=== PATIENT | male | born 1985 | race Caucasian/White ===

== ENCOUNTER → 2016-07-10 | Outpatient (CLI) | payer OTHER | END | disposition home or self-care (01) | LOC: C.MAMM 14:26 | PROVIDERS: ATTEND Internal Medicine Gastroenterology | DX: K90.0 Celiac disease (principal) ==

== ENCOUNTER → 2016-08-29 | Outpatient (CLI) | payer OTHER | END | disposition home or self-care (01) | LOC: C.LAB 14:03 | PROVIDERS: ATTEND Internal Medicine | DX: K90.0 Celiac disease (principal) ==

== ENCOUNTER 2017-08-24 11:13 | Emergency (ER) | payer OTHER ==
[~2017-08-24] VITALS: Ht 182.9 cm; Wt 86.6 kg
[2017-08-24 11:22] VITALS: TEMP 36.4; Ht 182.9 cm; Wt 86.6 kg
[2017-08-24 12:37] LABS: INFLUENZA B ANTIGEN Neg for Influ B (NEG)
[2017-08-24] MEDS ORDERED: MULT-506 PO (13:02)
[2017-08-24] MEDS ORDERED: PHEN1MIS10 PO (13:02)
[2017-08-24 13:06] VITALS: BP 113/60; PULSE 49; O2SAT 98
--- NOTE | 2017-08-24 18:55 | EMERGENCY ROOM VISIT NOTE ---
History Report prepared by Blessing: Sujey Rader Under the Supervision of: Dr. Young Lynn M.D. First contact with patient: 12:12 Chief Complaint: FLU LIKE SX Stated Complaint: FEVER, CHILLS, ACHES History of Present Illness The patient is a 31 year old male who presents to the Emergency Room with complaints of flu like symptoms beginning at 1200 yesterday. He reports he had a fever of 101 yesterday but today it is 98. He also reports that he has a mild cough, nausea, chills, and muscle aches. he also notes he took Tylenol and it helped a little. Pt denies LOC, headache, diaphoresis, visual changes, neck pain , chest pain, breathing difficulties, vomiting, abdominal pain, back pain, melena, hematochezia, urinary symptoms, numbness, weakness, lymphadenopathy, rash, or other complaints. Source of History: patient Onset: 1200 yesterday Symptom Intensity: mild Modifying Factors (Relieving): tylenol Associated Symptoms: + fevers, + chills, + cough, + nausea Note: Positive muscle aches. Review of Systems See HPI for pertinent positives and negatives. A total of ten systems were reviewed and were otherwise negative. Family History No pertinent family history Social History Smoking Status: Never Smoker Smokeless Tobacco Use: Unknown Housing Status: lives with family Current/Historical Medications Scheduled Multivitamin (Multivitamin), 1 TAB PO QAM Afghpgzmxxmux-Tkpeqtqbjz-Uegjt (Day Time/Nite Time Cold), 2 TABS PO UD Allergies Coded Allergies: Gluten (Unverified Allergy, Severe, GI SYMPTOMS, 08/24/17) Physical Exam Vital Signs Date Time Temp Pulse Resp B/P (MAP) Pulse Ox O2 Delivery O2 Flow Rate FiO2 08/24/17 13:06 49 113/60 98 08/24/17 11:22 36.4 60 18 120/76 98 Room Air Physical Exam GENERAL: Awake, alert, mildly ill appearing, no distress HEAD: Normocephalic, atraumatic. No edema. EYES: Normal conjunctiva. Sclera non-icteric. EARS: Right TM normal. Left TM normal. OROPHARYNX: Lips, tongue, and mucosa unremarkable. No erythema or exudate. NECK: Supple. No nuchal rigidity. FROM. No adenopathy. Negative jolt accentuation test. RESPIRATORY: CTA bilaterally. No wheezes rales or rhonchi. CARDIAC: Borderline tachycardic rate. Normal rhythm. No murmurs. No rubs. GI: Soft, non distended. No tenderness to palpation. NEURO: Normal sensorium. Normal speech. SKIN: No rash or jaundice noted. Medical Decision & Procedures Laboratory Results Test 08/24/17 11:56 Influenza Type A Antigen Neg for Influ A (NEG) Influenza Type B Antigen Neg for Influ B (NEG) Laboratory results reviewed by me ED Course 1225: The patient was evaluated in room B10. A complete history and physical exam was performed. 1253: I reevaluated the patient. Discussed results and discharge instructions: He verbalized understanding and agreement. The patient is ready for discharge. Medical Decision Triage Nursing notes reviewed. The patient's presentation and history were concerning for fever. Etiologies such as viral syndrome, URI, sinusitis, influenza, otitis, pharyngitis, pneumonia, as well as others were entertained. The patient was evaluated. Clinically he was doing well. He was afebrile. He declined chest imaging. His pulmonary examination was normal. Flu testing was performed and was negative. I suspect viral syndrome. The patient was given a work note. Conservative management was discussed and he was in agreement. If his symptoms worsen or do not resolve back to emergency from for reevaluation. I gave my usual and customary discussion regarding this issue. By the evaluation outlined above other emergent etiologies such as those listed in the differential, as well as others, were deemed relatively unlikely. The patient was educated about the findings as listed above. All questions were answered and the patient was pleased with the treatment. Return instructions were outlined and the patient was discharged in stable condition. The patient was referred to his PCP for follow-up for a recheck of the current condition. Medication Reconcilliation Current Medication List: was personally reviewed by me Blood Pressure Screening Patient's blood pressure: Normal blood pressure Blood pressure disposition: Did not require urgent referral Impression Primary Impression: Influenza-like symptoms Scribe Attestation The scribe's documentation has been prepared under my direction and personally reviewed by me in its entirety. I confirm that the note above accurately reflects all work, treatment, procedures, and medical decision making performed by me. Departure Information Dispostion Home / Self-Care Referrals Morales [place] M.D. (PCP) Forms HOME CARE DOCUMENTATION FORM, IMPORTANT VISIT INFORMATION Patient Instructions My [facility] Additional Instructions Acetaminophen(Tylenol) may be used for fever or pain. Use 1000mg every six hours as needed. Avoid using more than 4000mg in a 24 hour period. (AND/OR) Ibuprofen(Motrin, Advil) may be used for fever or pain. Use 600mg every six hours as needed. Take with food. Avoid using more than 2400mg in a 24 hour period. Do not use 2400mg per day for more than three consecutive days without physician direction. Prolonged inappropriate use can lead to stomach upset or ulcers. Rest and drink plenty of fluids. Controlling your fever with Tylenol and Ibuprofen as above will make you feel better. Return to the ER for severe headache, neck stiffness, chest pain, difficulty breathing, fevers, vomiting, worsening of your condition, or as needed. Follow up with your primary physician this week for a recheck of your current condition.
== END 2017-08-24 13:07 | disposition home or self-care (01) ==
LOC: C.EDB 11:15
DX: R50.9 Fever, unspecified (principal); R05 Cough; R11.0 Nausea

== ENCOUNTER 2017-10-06 16:21 | Emergency (ER) | payer OTHER ==
[~2017-10-06] VITALS: Ht 182.9 cm; Wt 85.1 kg
[~2017-10-06 16:21] MED LIST: MULT-506 PO; PHEN1MIS10 PO
[2017-10-06 16:23] VITALS: TEMP 36.9; Ht 182.9 cm; Wt 85.1 kg
[2017-10-06] MEDS ORDERED: RABIES VACCINE (IMOVAX) HUMAN DIPL CELL 2.5 INTER.UNIT/ML SYR IM. ONE (17:00)
[2017-10-06] MEDS ORDERED: RABIES IMMUNE GLOBULIN (HUMAN) 150 INTER.UNIT/ML 2 ML VIAL IM. ONE (17:00)
[2017-10-06 18:42] VITALS: BP 124/76; PULSE 66; O2SAT 100
--- NOTE | 2017-10-07 00:10 | EMERGENCY ROOM VISIT NOTE ---
ED Visit Note First contact with patient: 16:29 Chief Complaint: Rabies prophylaxis. History of Present Illness: Mr. Sidhu is a 31-year-old white male who ambulates into the ED accompanied by his and daughter reporting that when he awoke this morning he noted a bat flying around his house. He reports he contacted the family physician who recommended that the patient come to the emergency department for rabies prophylaxis. Patient reports that he checked over his body and was not able to identify any bites from the back. He reports he is feeling well and is asymptomatic at this time. Review of Systems: As noted above in history of present illness. Past Medical History: Patient denies. Current Medications: Multivitamins. Allergies to Medications: Gluten. Social History: Patient is currently employed; he feels safe in his home environment; he denies tobacco use. Tetanus Immunization Status: Patient reports up-to-date. Physical Examination: Vital Signs: Date Time Temp Pulse Resp B/P (MAP) Pulse Ox O2 Delivery O2 Flow Rate FiO2 10/06/17 18:42 66 20 124/76 100 10/06/17 16:23 36.9 53 16 116/50 100 Room Air GENERAL: 31-year-old male in no acute distress, nontoxic-appearing, afebrile and hemodynamically stable. NEUROLOGICAL: Awake, alert and oriented to person, place and time. Answering questions appropriately and following commands. Normal gait. ED Course: Patient is assessed as noted above. Patient's medication list were reviewed. Patient received a total of 1702 units of rabies immunoglobulin IM and 2.5 units of rabies vaccination IM. Patient was observed and had no reactions to his medications. Patient was educated about today's findings and instructed on his treatment plan ; he verbalized understanding and agreement with this plan. Clinical Impression: In need of rabies prophylaxis. Disposition: Patient discharged home in stable condition accompanied by his and daughter; prior to departure he was reassessed and was asymptomatic. Plan: Patient was encouraged return to the ED on October 09, October 18 and October 20 for additional rabies vaccinations. Patient was educated on common side effects of rabies vaccination and treatment. Patient was encouraged to follow-up with family doctor as needed for mild reactions from his injections. Patient was encouraged return to the ED for any signs of allergic reactions, fevers, uncontrolled pain or any new/concerning symptoms.
== END 2017-10-06 18:20 | disposition home or self-care (01) ==
LOC: C.EDB 16:22 → C.EDD 18:20
DX: Z20.3 Contact with and (suspected) exposure to rabies (principal); Z23 Encounter for immunization; Z91.018 Allergy to other foods

== ENCOUNTER 2017-10-13 15:43 | Emergency (ER) | payer OTHER ==
[~2017-10-13] VITALS: Ht 182.9 cm; Wt 84.9 kg
[~2017-10-13 15:43] MED LIST changes: -PHEN1MIS10 PO
[2017-10-13 15:56] VITALS: BP 117/58; PULSE 35; TEMP 36.8; Ht 182.9 cm; Wt 84.9 kg
[2017-10-13] MEDS ORDERED: RABIES VACCINE (IMOVAX) HUMAN DIPL CELL 2.5 INTER.UNIT/ML SYR IM. ONE (16:15)
--- NOTE | 2017-10-13 16:17 | EMERGENCY ROOM VISIT NOTE ---
ED Visit Note First contact with patient: 16:02 CHIEF COMPLAINT: Rabies prophylaxis HISTORY OF PRESENT ILLNESS: This 31-year-old male patient presents to the emergency department, ambulatory, for their 3rd rabies shot. The patient has not had any complications from the previous injections. They deny any other complaints. REVIEW OF SYSTEMS: A 6 system review of systems was completed with positives and pertinent negatives listed in the HPI. ALLERGIES: Gluten MEDICATIONS: Multivitamin PMH: None PHYSICAL EXAM: Vital Signs: Reviewed Nurse's notes, vital signs stable. GENERAL : This is a 31-year-old white male, in no acute distress, well-developed, well- nourished. HEAD: Atraumatic, without temporal or scalp tenderness. EYES: PERRLA, EOMI, no discharge or injection. SKIN: Normal. NEUROLOGICAL: Alert and cooperative. Sensory and motor functions grossly intact. EMERGENCY DEPARTMENT COURSE: I examined the patient. The patient was given Imovax 1ml IM. The patient was observed for 20 minutes with no reaction. The patient was discharged home in stable condition. I attest that I have personally reviewed the patient's current medication list. Patient was found to have normal blood pressure on screening and does not require follow-up. Differential diagnosis includes rabies, rabies prophylaxis, infection, bite, and others DIAGNOSIS: Rabies prophylaxis The chart was completed utilizing [employer] Speech voice recognition software. Grammatical errors, random word insertions, pronoun errors, and incomplete sentences are an occasional consequence of this system due to software limitations, ambient noise, and hardware issues. Any formal questions or concerns about the content, text, or information contained within the body of this dictation should be directly addressed to the provider for clarification. Problem List Medical Problems: (1) Celiac Disease Status: Chronic (2) Influenza-like symptoms Status: Resolved Current/Historical Medications Scheduled Multivitamin (Multivitamin), 1 TAB PO QAM Allergies Coded Allergies: Gluten (Unverified Allergy, Severe, GI SYMPTOMS, 08/24/17) Vital Signs Date Time Temp Pulse Resp B/P (MAP) Pulse Ox O2 Delivery O2 Flow Rate FiO2 10/13/17 16:55 99 10/13/17 15:56 36.8 35 18 117/58 100 Room Air Medications Administered Medications (Trade) Dose Ordered Sig/Leigh Ann Route Start Time Stop Time Status Last Admin Dose Admin Rabies Vaccine Human Diploid Cell (Imovax Rabies) 2.5 interunit ONCE ONCE IM. 10/13/17 16:15 10/13/17 16:16 DC 10/13/17 16:20 2.5 INTERUNIT Departure Information Impression Primary Impression: Need for post exposure prophylaxis for rabies Dispostion Home / Self-Care Condition GOOD Referrals No Doctor, Assigned (PCP) Patient Instructions My [facility] Additional Instructions You were seen in the ED today for your 3rd rabies vaccination. Please return on day 14 for your final vaccine. Return sooner for any concerning symptoms or adverse reactions.
[2017-10-13 16:55] VITALS: O2SAT 99
== END 2017-10-13 16:56 | disposition home or self-care (01) ==
LOC: C.EDB 15:44 → C.EDD 16:56
DX: Z20.3 Contact with and (suspected) exposure to rabies (principal); Z23 Encounter for immunization; K90.0 Celiac disease

== ENCOUNTER 2017-10-20 11:39 | Emergency (ER) | payer OTHER ==
[~2017-10-20] VITALS: Ht 182.9 cm; Wt 84.8 kg
[2017-10-20 11:46] VITALS: BP 122/78; PULSE 48; TEMP 36.7; O2SAT 98; Ht 182.9 cm; Wt 84.8 kg
--- NOTE | 2017-10-20 11:58 | EMERGENCY ROOM VISIT NOTE ---
ED Visit Note First contact with patient: 11:49 CHIEF COMPLAINT: "Rabies vaccine repeat visit" HISTORY OF PRESENT ILLNESS: This 31-year-old male patient presents to the emergency department via private vehicle for their fourth and final rabies shot. The patient has not had any complications from the previous injections. They deny any other complaints. REVIEW OF SYSTEMS: A 6 system review of systems was completed with positives and pertinent negatives listed in the HPI. ALLERGIES: Gluten MEDICATIONS: As noted below PMH: Unchanged from previous visit. PHYSICAL EXAM: Vital Signs: Reviewed Nurse's notes, vital signs stable. GENERAL : 31-year-old male, in no acute distress, well-developed, well-nourished. HEAD : Atraumatic, without temporal or scalp tenderness. EYES: PERRLA, EOMI, no discharge or injection. SKIN: Normal. NEUROLOGICAL: Alert and cooperative. Sensory and motor functions grossly intact. EMERGENCY DEPARTMENT COURSE: I examined the patient. The patient was given 2.5 interunit of Imovax IM. The patient was observed with no reaction. The patient was discharged home in stable condition. Problem List Medical Problems: (1) Celiac Disease Status: Chronic (2) Influenza-like symptoms Status: Resolved Current/Historical Medications Scheduled Multivitamin (Multivitamin), 1 TAB PO QAM Allergies Coded Allergies: Gluten (Unverified Allergy, Severe, GI SYMPTOMS, 10/20/17) Vital Signs Date Time Temp Pulse Resp B/P (MAP) Pulse Ox O2 Delivery O2 Flow Rate FiO2 10/20/17 11:46 36.7 48 16 122/78 98 Room Air Medications Administered Medications (Trade) Dose Ordered Sig/Leigh Ann Route Start Time Stop Time Status Last Admin Dose Admin Rabies Vaccine Human Diploid Cell (Imovax Rabies) 2.5 interunit ONCE ONCE IM. 10/20/17 12:00 10/20/17 12:01 DC 10/20/17 12:10 2.5 INTERUNIT Departure Information Impression Primary Impression: Need for post exposure prophylaxis for rabies Dispostion Home / Self-Care Condition GOOD Referrals No Doctor, Assigned (PCP) Patient Instructions My [facility] Additional Instructions You were seen for your final injection of the Imovax rabies vaccination. Please return with any new/concerning symptoms. Thank you.
[2017-10-20] MEDS ORDERED: RABIES VACCINE (IMOVAX) HUMAN DIPL CELL 2.5 INTER.UNIT/ML SYR IM. ONE (12:00)
== END 2017-10-20 12:12 | disposition home or self-care (01) ==
LOC: C.EDB 11:40 → C.EDD 12:12
DX: Z23 Encounter for immunization (principal); Z20.3 Contact with and (suspected) exposure to rabies

== ENCOUNTER → 2018-01-14 | Outpatient (CLI) | payer OTHER ==
[2018-01-14 09:52] LABS: EOS % 2.8 %; EOS ABS # 0.09 K/uL (0-0.5); HEMATOCRIT 42.4 % (42-52); HEMOGLOBIN 14.6 g/dL (14.0-18.0); IG# 0.01 K/uL (0.00-0.02); LYMPH % 42.1 %; LYMPH ABS # 1.33 K/uL (1.2-3.4); MEAN CELL VOLUME 88.5 fL (80-100); MEAN CORPUSCULAR HEMOGLOBIN 30.5 pg (25-34); MEAN CORPUSCULAR HGB CONC 34.4 g/dl (32-36); MEAN PLATELET VOLUME 9.7 fL (7.4-10.4); MONO % 10.1 %; MONO ABS # 0.32 K/uL (0.11-0.59); NEUT % 44.7 %; NEUT ABS # 1.41 K/uL (1.4-6.5); PLATELET COUNT 189 K/uL (130-400); RED CELL DISTRIBUTION WIDTH CV 12.8 % (11.5-14.5); RED CELL DISTRIBUTION WIDTH SD 41.1 fL (36.4-46.3); WHITE BLOOD COUNT 3.16 K/uL (4.8-10.8)
[2018-01-14 10:13] LABS: ALBUMIN 4.5 gm/dl (3.4-5.0); ALKALINE PHOSPHATASE 56 U/L (45-117); ALT/SGPT 32 U/L (12-78); AST/SGOT 29 U/L (15-37); BLOOD UREA NITROGEN 15 mg/dl (7-18); CALCIUM 9.4 mg/dl (8.5-10.1); CARBON DIOXIDE 30 mmol/L (21-32); CHOLESTEROL 186 mg/dl (0-200); CREATININE 1.07 mg/dl (0.60-1.40); GLUCOSE 77 mg/dl (70-99); LDL CHOLESTEROL CALCULATED 92 mg/dl; POTASSIUM 3.8 mmol/L (3.5-5.1); SODIUM 137 mmol/L (136-145)
== END | disposition home or self-care (01) ==
LOC: C.LAB 07:03
PROVIDERS: ATTEND Physician Assistant Medical
DX: Z00.00 Encounter for general adult medical examination without abnormal findings (principal); K90.0 Celiac disease